=== PATIENT | female | born 2000 | race Two or more races ===

== ENCOUNTER 2023-06-25 12:20 | Emergency (ER) | payer MEDICAID ==
[~2023-06-25] VITALS: Ht 152.4 cm; Wt 52.8 kg
[2023-06-25 16:02] VITALS: BP 129/72; PULSE 80; RESP 16; TEMP 98.6; O2SAT 98
== END 2023-06-25 16:56 | disposition home or self-care (01) ==
LOC: ER 12:20
DX: N64.4 Mastodynia (principal)

== ENCOUNTER 2024-03-28 22:38 | Emergency (ER) | payer MEDICAID ==
[~2024-03-28] VITALS: Ht 152.4 cm; Wt 54.5 kg
[2024-03-28 22:57] LABS: Basophils # (auto) 0 10 ^3/uL (0-0.2); Basophils % (auto) 0.4 % (0.0-2.0); Eosinophils # (auto) 0.8 10 ^3/uL (0-0.8); Eosinophils % (auto) 7.6 % (0.0-7.0); Hematocrit 42.3 % (36.0-46.0); Hemoglobin 14.3 g/dL (12.2-16.2); Lymphocytes % (auto) 49.1 % (10.0-50.0); Mean Corpuscular Hemoglobin 28.9 pg (28.0-32.0); Mean Corpuscular Hgb Conc. 33.7 g/dL (32.0-36.0); Mean Corpuscular Volume 85.6 fL (80.0-100.0); Monocytes # (auto) 0.7 10 ^3/uL (0-1.3); Monocytes % (auto) 6.4 % (0.0-12.0); Neutrophils # (auto) 3.7 10 ^3/uL (1.6-8.6); Neutrophils % (auto) 36.5 % (37.0-80.0); Nucleated Red Blood Cells % 0.1 %; Red Blood Cells 4.94 10^6/uL (4.0-5.20); Red Cell Distribution Width 13.2 % (11.8-14.3); White Blood Cell 10.2 10^3/uL (4.4-10.8)
[2024-03-28 23:22] LABS: Alanine Aminotransferase 44 U/L (7-40); Albumin 4.7 g/dL (3.2-4.8); Alkaline Phosphatase 130 U/L (46-116); Anion Gap 8 (5-15); Aspartate Aminotransferase 23 U/L (13-40); BUN/Creatinine Ratio 13.4 (10.0-20.0); Blood Urea Nitrogen 9 mg/dL (9-23); Calcium 10.3 mg/dL (8.7-10.4); Carbon Dioxide 24 mmol/L (20-30); Chloride 108 mmol/L (98-107); Glucose 108 mg/dL (74-106); Potassium 4.1 mmol/L (3.5-5.1); Sodium 140 mmol/L (136-145)
[2024-03-28 23:23] LABS: Bilirubin, Total 0.6 mg/dL (0.2-1.0); Total Protein 7.7 g/dL (5.7-8.2)
[2024-03-29 00:04] VITALS: BP 126/75; PULSE 83; RESP 19; TEMP 97.8; O2SAT 96
== END 2024-03-29 00:06 | disposition home or self-care (01) ==
LOC: ER 22:38
DX: R07.89 Other chest pain (principal)
CPT/HCPCS: 36415; 71045; 80053; 84484; 85025; 93005